=== PATIENT | male | born 1985 | race Caucasian/White ===

== ENCOUNTER 2022-08-27 18:58 | Emergency (ER) | payer OTHER ==
[~2022-08-27] VITALS: Ht 180.3 cm; Wt 106.1 kg
[2022-08-27 18:59] VITALS: BP 147/86
[2022-08-27] MEDS ORDERED: LIDOCAINE MPF 1% 10 MG/ML VIAL INJ ONE (19:20)
[2022-08-27] MEDS ORDERED: BACITRACIN OINT 500 UNITS/GM PKT TP ONE (19:20)
--- NOTE | 2022-08-27 19:56 | NUR ---
37YR OLD MALE BIB C/O LAC TO R UNDER ARM. PT WAS CUT WITH A PIECE OF BROKEN GLASS FROM BEER BOTTLE. NON INTENT. PAIN LEVEL 1/10 . PA IS AT BEDSIDE WITH SUTURE SETUP. NO ACTIVE BLEEDING. AT BEDSIDE NKDA NO MED HX
--- NOTE | 2022-08-27 20:02 | NUR ---
Patient discharged with v/s stable. Written and verbal after care instructions given and explained. Patient verbalized understanding. Ambulatory with steady gait. All questions addressed prior to discharge. Advised to follow up with PMD.
== END 2022-08-27 20:02 | disposition home or self-care (01) ==
LOC: MED 18:58 → EDBD 18:58 → MED 20:02
DX: S41.111A Laceration without foreign body of right upper arm, initial encounter (principal); W19.XXXA Unspecified fall, initial encounter; Y93.89 Activity, other specified; Y92.89 Other specified places as the place of occurrence of the external cause; Y99.8 Other external cause status
CPT/HCPCS: 12002; 99282; J2001